=== PATIENT | male | born 1995 | race Caucasian/White ===

== ENCOUNTER 2020-06-27 15:49 | Emergency (ER) | payer OTHER ==
[~2020-06-27] VITALS: Ht 170.2 cm; Wt 91.0 kg
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
--- NOTE | 2020-06-27 17:00 | NUR ---
CT RESULTED, CSPINE CLEARED
[2020-06-27 17:13] VITALS: BP 122/67
--- NOTE | 2020-06-27 17:13 | NUR ---
PATIENT TO XRAY
--- NOTE | 2020-06-27 17:56 | NUR ---
ERP IN ROOM FOR RECHECK
--- NOTE | 2020-06-27 18:32 | NUR ---
Patient given discharge instructions and they have confirmed that they understand the instructions. Patient ambulatory with steady gait.
== END 2020-06-27 18:33 | disposition home or self-care (01) ==
LOC: ED 18:24
DX: S06.0X0A Concussion without loss of consciousness, initial encounter (principal); S42.034A Nondisplaced fracture of lateral end of right clavicle, initial encounter for closed fracture; M25.512 Pain in left shoulder; R07.9 Chest pain, unspecified; M54.2 Cervicalgia; V19.9XXA Pedal cyclist (driver) (passenger) injured in unspecified traffic accident, initial encounter; Y93.89 Activity, other specified; Y92.89 Other specified places as the place of occurrence of the external cause; Y99.8 Other external cause status
CPT/HCPCS: 29105; 70450; 71046; 72125; 99285